=== PATIENT | female | born 1960 | race Caucasian/White ===

== ENCOUNTER 2020-08-19 08:13 | Day surgery (SDC) | payer OTHER ==
[2020-08-19] MEDS ORDERED: Ringers Lactate 1,000 ML IV ONE ×2 (08:39→11:15)
[2020-08-19] MEDS ORDERED: CEFAZOLIN/SWI 1gm 1 GM/10 ML SYR ONE (08:39)
[2020-08-19] MEDS ORDERED: NA CHLORIDE 0.9% 1,000 ML ONE (08:41)
[2020-08-19] MEDS ORDERED: BSS OPTHALMIC SOL 15 ML BOT OPTH ONE (08:41)
[2020-08-19] MEDS ORDERED: LIDOCAINE 1% W/EPI 1:100,000 10 ML VIAL ONE (08:41)
[2020-08-19] MEDS ORDERED: EPINEPHRINE/PF 1 MG/ML AMP ONE (08:41)
[2020-08-19] MEDS ORDERED: SODIUM CL IV ONE (09:01)
[2020-08-19] MEDS ORDERED: dexAMETHasone 10 MG/ML VIAL ONE (10:05)
[2020-08-19] MEDS ORDERED: LIDOCAINE 2% MPF 5 ML VIAL ONE (10:05)
[2020-08-19] MEDS ORDERED: Phenylephrine HCl 10 MG/ML 1 ML VIAL ONE (10:05)
[2020-08-19] MEDS ORDERED: MIDAZOLAM HCL 2 MG/2 ML INJ ONE (10:05)
[2020-08-19] MEDS ORDERED: FENTANYL CITR 100 MCG/2 ML ONE ×2 (10:05→10:06)
[2020-08-19] MEDS ORDERED: ONDANSETRON 4 MG/2 ML VIAL ONE (10:05)
[2020-08-19] MEDS ORDERED: propofoL 200 MG/20 ML VIAL IV ONE (10:05)
[2020-08-19] MEDS ORDERED: KETOROLAC 30 MG/ML INJ ONE (10:05)
[2020-08-19] MEDS ORDERED: Mastisol Adhesive Liq ONE ×2 (10:08→10:42)
[2020-08-19] MEDS ORDERED: CODEINE 30MG/APAP 300MG TAB ONE (13:00)
[2020-08-19 13:42] VITALS: BP 110/74; TEMP 98.1; O2SAT 100
--- NOTE | 2020-08-20 08:45 | OP ---
Surgeon: Maikol Maguire MD Preoperative Diagnoses: Excess parotid skin, face and hands and neck, spider veins of the legs and face. Postoperative Diagnosis: Excess parotid skin, face and hands and neck, spider veins of th e legs and face. Procedure Performed: Upper blepharoplasty and vein injections of the face and legs, fat transfer to the face and hands. Anesthesia: General. Procedure In Detail: After satisfactory induction of general anesthesia, the legs were prepped with DuraPrep, dry sterile drapes applied in usual manner. A 10 cc syringe was used to infiltrate 60 cc i n the right flank and left flank. Then 2.5 mm diameter cannula was used to harvest fat. 40 cc was removed from the right, 63 from the left. The wounds were closed with 4-0 PDS and half-inc h Steri-Strips. The face was then prepped with Betadine and dry sterile drapes were applied in usual manner and the patient was then marked out for upper blepharoplasty. The incision was made 8 mm abo ve the same margin protectors were placed. They have been infiltrated with 1% xylocaine p rior to incision. The incision was made. Then a lateral incision was made and then scissors were us ed and extra skin about 2 mm was removed. Electrocautery was used for hemostasis and the wound was c losed with 6-0 Vicryl and 6-0 Prolene running subcuticular lateral interrupted . Left side was done in mirror-image manner. . Tinc of benzoin and Steri-Strips were appl ied and the eyelids were taped and then fat was injected 1 cc into each right and left sam olabial fold, 1 cc into the corner of the mouth in area of deformity each time. The cheek had 2 cc e ach at each time. The right zygomatic area was irrigated with 0.5 cc. Nothing was done on the left. Neck was injected with 1.2 cc. This was done by using . The patient then had the veins injected with hypertonic saline solution and then attention was turned to the hand. The hand was the n prepped with DuraPrep, dry sterile drapes applied in usual manner. An 8 needle was used to make in cision in the web space between the thumb index, index middle, middle ring, ring little, and then the cannula was introduced. 10 cc total were placed in dorsum of right and left hand each using nail fa t. Attention was then turned to the legs. Legs had spider veins as well as larger veins were inject ed with hypertonic saline using a 30-gauge needle. Dressing on hand included Xeroform and 2 inch Kli ng. The patient tolerated procedure well, returned to Recovery. ANGELA/ELSY Voice ID: [id number] Report ID: [id number]
== END 2020-08-19 13:30 | disposition home or self-care (01) ==
LOC: OR 08:13
PROVIDERS: ATTEND Specialist
PROC: 0J013ZZ Alteration of Face Subcutaneous Tissue and Fascia, Percutaneous Approach (ICD-10-PCS; 2020-08-19)
PROC: 0J043ZZ Alteration of Right Neck Subcutaneous Tissue and Fascia, Percutaneous Approach (ICD-10-PCS; 2020-08-19)
PROC: 0J0G3ZZ Alteration of Right Lower Arm Subcutaneous Tissue and Fascia, Percutaneous Approach (ICD-10-PCS; 2020-08-19)
PROC: 0J0H3ZZ Alteration of Left Lower Arm Subcutaneous Tissue and Fascia, Percutaneous Approach (ICD-10-PCS; 2020-08-19)
PROC: 3E033TZ Introduction of Destructive Agent into Peripheral Vein, Percutaneous Approach (ICD-10-PCS; 2020-08-19)
PROC: 080P0ZZ Alteration of Left Upper Eyelid, Open Approach (ICD-10-PCS; principal; 2020-08-19 09:00)
PROC: 080N0ZZ Alteration of Right Upper Eyelid, Open Approach (ICD-10-PCS; 2020-08-19 09:00)
DX: H02.403 Unspecified ptosis of bilateral eyelids (principal); I83.93 Asymptomatic varicose veins of bilateral lower extremities; I86.8 Varicose veins of other specified sites; L98.7 Excessive and redundant skin and subcutaneous tissue
CPT/HCPCS: 15823; 15773; 36468; J2704; J0171; J2370; J2250; J3010 ×2; J1100; J0690; J7120 ×2; J7030; J2405; J7131

== ENCOUNTER 2021-03-06 06:32 | Day surgery (SDC) | payer OTHER ==
[2021-03-06] MEDS ORDERED: LIDOCAINE 1% MPF 2 ML AMPULE ONE (07:00)
[2021-03-06] MEDS ORDERED: propofoL 200 MG/20 ML VIAL IV ONE ×2 (07:01)
[2021-03-06] MEDS ORDERED: Ringers Lactate 1,000 ML IV ONE (07:03)
[2021-03-06 07:40] VITALS: TEMP 97.9
--- NOTE | 2021-03-06 08:21 | ENDO RPT ---
[address], [address] COLONOSCOPY PROCEDURE REPORT EXAM DATE: 03/06/2021 PATIENT NAME: Kitty Robledo MR #: [id number] BIRTHDATE: 1960 ATTENDING: Dick Hackett DR STATUS: outpatient LINE CONSTRUCTION ENGINEER: Rosa Chen RN and Sveta Tapia INDICATIONS: The patient is a 60 yr old Female here for a colonoscopy due to colon cancer screening PROCEDURE PERFORMED: Colonoscopy with biopsy - cold polypectomy MEDICATIONS: Per Anesthesia. ESTIMATED BLOOD LOSS: None CONSENT: The patient understands the risks and benefits of the procedure and understands that these risks include, but are not limited to: sedation, allergic reaction, infection, perforation and/or bleeding. Alternative means of evaluation and treatment include, among others: physical exam, x-rays, and/or surgical intervention. The patient elects to proceed with this endoscopic procedure. DESCRIPTION OF PROCEDURE: During intra-op preparation period all mechanical medical equipment was checked for proper function. Hand hygiene and appropriate measures for infection prevention was taken. Procedure, possible complications, alternatives including, but not limited to possibility of bleeding, perforation, tear, infection, sepsis, need for surgery, need for blood transfusion, were explained to the patient. After the risks, benefits and alternatives of the procedure were thoroughly explained, Informed consent was verified, confirmed and timeout was successfully executed by the treatment team. The patient was placed in the left lateral position. A digital rectal exam was performed and revealed internal hemorrhoids. After appropriate level of anesthesia, the scope was passed. The EC-[id number] ([id number]) endoscope was introduced through the anus and advanced to the cecum, which was identified by both the appendix and ileocecal valve. The quality of the prep was fair. The instrument was then slowly withdrawn as the colon was fully examined. Scope withdrawal time was 9 minutes. COLON FINDINGS: A smooth flat polyp ranging between 3-5mm in size was found at the cecum. A polypectomy was performed with cold forceps. The resection was complete, the polyp tissue was completely retrieved and sent to histology. Small internal hemorrhoids were found. Retroflexed views revealed no abnormalities. The scope was then completely withdrawn from the patient and the procedure terminated. ADVERSE EVENTS: There were no complications. IMPRESSIONS: Flat polyp ranging between 3-5mm in size was found at the cecum; polypectomy was performed with cold forceps RECOMMENDATIONS: 1. avoid NSAIDS for 2 weeks 2. await biopsy results 3. fiber rich diet 4. follow-up: office 2 week(s) 5. Monitor for any evidence of rectal bleeding. 6. yearly hemoquant 7. hemorrhoidal hygiene 8. hemorrhoidal hygiene RECALL: for Colonoscopy, pending biopsy results. Dick Hackett DR eSigned: Dick Hackett DR 03/06/2021 8:21 AM cc: CPT CODES: ICD9 CODES: PATIENT NAME: Kitty Robledo MR#: [id number]
[2021-03-06 08:41] VITALS: O2SAT 100
[2021-03-06 08:49] VITALS: BP 99/68
== END 2021-03-06 08:52 | disposition home or self-care (01) ==
LOC: OR 06:32
PROVIDERS: ATTEND Surgery
PROC: 0DBH8ZX Excision of Cecum, Via Natural or Artificial Opening Endoscopic, Diagnostic (ICD-10-PCS; principal; 2021-03-06 08:00)
DX: Z12.11 Encounter for screening for malignant neoplasm of colon (principal); D12.0 Benign neoplasm of cecum; K64.8 Other hemorrhoids
CPT/HCPCS: 88305; 45380; J2704; J7120